=== PATIENT | male | born 1995 | race Two or more races ===

== ENCOUNTER 2021-05-21 16:46 | Emergency (ER) | payer BC ==
[~2021-05-21] VITALS: Ht 167.6 cm; Wt 81.6 kg
[2021-05-21 17:33] VITALS: BP 138/85
--- NOTE | 2021-05-21 18:41 | PHYS DOC ---
Past Medical History Past Surgical History: No Surgical History General Adult EDM: Chief Complaint: FATIGUE HPI: HPI: Patient is a 25 year old male without pertinent past medical history who presents with 2 weeks of generalized fatigue, nausea, sweating/clamminess, lig htheadedness. States that he had a brief episode of left-sided chest discomfort that has passed and has not returned. This was sometime 1-2 weeks ago. States that he has had these types of symptoms before but they have lasted for only 1-2 hours, and tended to go away on their own. He does state that since the 2 weeks of symptoms, he is also had a slight cough. States that they have been intermittent since 2019. States that he saw a doctor, and at first they thought it was GERD and started him on an acid blocking medication. He does not currently have a PCP. No current medications. No major surgical history. No major medical history. Review of Systems: Review of Systems: Constitutional: Reports generalized fatigue. Denies fever or chills. [] Eyes: Denies change in visual acuity. [] HENT: Denies nasal congestion or sore throat. [] Respiratory: Denies cough or shortness of breath. [] Cardiovascular: Denies chest pain or edema. [] GI: Reports nausea. Denies abdominal pain, vomiting, bloody stools or diarrhea. [] : Denies dysuria. [] Musculoskeletal: Denies back pain or joint pain. [] Integument: Reports sweating/clamminess. Denies rash. [] Neurologic: Reports occasional headaches. Denies focal weakness or sensory changes. [] Endocrine: Denies polyuria or polydipsia. [] Lymphatic: Denies swollen glands. [] Psychiatric: Denies depression or anxiety. [] Heart Score: C/O Chest Pain: N/A Risk Factors: Risk Factors: DM, Current or recent (<one month) smoker, HTN, HLP, family history of CAD, obesity. Risk Scores: Score 0 - 3: 2.5% MACE over next 6 weeks - Discharge Home Score 4 - 6: 20.3% MACE over next 6 weeks - Admit for Clinical Observation Score 7 - 10: 72.7% MACE over next 6 weeks - Early Invasive Strategies Allergies: Allergies: Allergies Coded Allergies Type Severity Reaction Last Updated Verified No Known Drug Allergies 05/21/21 No Physical Exam: PE: Constitutional: Well developed, well nourished, no acute distress, non-toxic appearance. [] HENT: Normocephalic, atraumatic, bilateral external ears normal, oropharynx moist, no oral exudates, nose normal. [] Eyes: PERRLA, EOMI, conjunctiva normal, no discharge. [] Neck: Normal range of motion, no tenderness, supple, no stridor. [] Cardiovascular:Heart rate regular rhythm, no murmur [] Lungs & Thorax: Bilateral breath sounds clear to auscultation [] Abdomen: Bowel sounds normal, soft, no tenderness, no masses, no pulsatile masses. [] Skin: clammy skin. Warm, no erythema, no rash. [] Back: No tenderness, no CVA tenderness. [] Extremities: No tenderness, no cyanosis, no clubbing, ROM intact, no edema. [] Neurologic: Alert, oriented to person, place, time. Face is symmetric. Speech is normal. Visual richards intact. Cranial nerves III-XII intact. 5/5 strength in bilateral upper and lower extremities in all dermatomes. No dysmetria with [id number]-[id number] or ftdd-js-rnve testing. Gait is stable. Psychologic: Affect normal, judgement normal, mood normal. [] Current Patient Data: Vital Signs: Vital Signs Date Time Temp Pulse Resp B/P (MAP) Pulse Ox O2 Delivery O2 Flow Rate FiO2 05/21/21 17:33 99.1 87 18 138/85 (102) 98 Room Air 99.1 EKG: EKG: [] Radiology/Procedures: Radiology/Procedures: [facility] [address] [place] [address] IMAGING REPORT Signed PATIENT: DYLLAN RICHARDSON ACCOUNT: [id number] : 1995 LOCATION: ER AGE: 25 SEX: M EXAM STATUS: REG ER ORD. PHYSICIAN: HEIDE JOINER MD REASON: cough, left sided chest discomfort PROCEDURE: CHEST AP ONLY Study: XR CHEST 1V Indication: Cough. Left-sided chest discomfort. Comparison: None. Findings: No pneumothorax, lobar consolidation or pleural effusion. The cardiomediastinal silhouette and daiana are within normal limits. No readily apparent abnormality of the partially assessed ribs. No free gas under the diaphragm. Impression: No acute radiographic abnormality of the chest. Electronically signed by: LORRI CRANE MD (05/21/2021 7:54 PM) [facility] DICTATED and SIGNED BY: LORRI CRANE MD DATE: 05/21/[id number] 0 [] Course & Med Decision Making: Course & Med Decision Making Pertinent Labs and Imaging studies reviewed. (See chart for details) Patient is 25-year-old male without pertinent past medical history who presents with 2 weeks of generalized fatigue, nausea, clamminess, lightheadedness, and cough. States he has had similar episodes in the past, but never lasting this long. Fortunately he is well-appearing with a normal exam aside from some skin clamminess, with normal vital signs. We will check basic labs, EKG, chest x-ray, Covid, and TSH. 1840 Labs unrevealing except for very mild leukocytosis. No source for infection identified. Is not immunocompromised and no hx of IVDU. Feel he does not require any further ED work up based on leukocytosis. EKG normal. Chest x-ray clear. Feel he is safe for discharge at this time. COVID pending. Will provide with a number for PCP office to establish care. 2013 Eloise Disclaimer: Eloise Disclaimer: This electronic medical record was generated, in whole or in part, using a voice recognition dictation system. Departure Departure Impression: Primary Impression: Fatigue Additional Impression: Clammy skin Disposition: HOME / SELF CARE / HOMELESS Condition: STABLE Referrals: NO PCP (PCP) Additional Instructions: Your work-up today was largely reassuring. Your EKG, chest x-ray both looked good. Your thyroid function was normal. Your electrolytes, kidney function, liver function were normal. Your red blood cell counts were normal. Your white blood cell count was very slightly elevated. Your Covid test is pending. Please tell you know the results of your test. If it is positive, you will need to isolate for at least 10 days from symptom onset, and have at least 3 days of improved symptoms. Since you do not have a PCP, please call the number for the [facility] at [phone]. HEIDE JOINER MD May 21, 2021 18:41
[2021-05-21 18:50] LABS: BASO # 0.1 x10^3/uL (0.0-0.2); BASO % 1 % (0-3); EOS % 0 % (0-3); HEMATOCRIT 46.3 % (39.0-53.0); LYMPH # 3.1 x10^3/uL (1.0-4.8); LYMPH % 26 % (24-48); MEAN CORPUSCULAR HEMOGLOBIN 30 pg (25-35); MEAN CORPUSCULAR HGB CONC 35 g/dL (31-37); MEAN CORPUSCULAR VOLUME 88 fL (79-100); MONO # 0.8 x10^3/uL (0.0-1.1); MONO % 7 % (0-9); NEUT # 7.8 x10^3/uL (1.8-7.7); NEUT % 66 % (31-73); PLATELET COUNT 272 x10^3/uL (140-400); RED BLOOD COUNT 5.29 x10^6/uL (4.30-5.70); RED CELL DISTRIBUTION WIDTH 13.1 % (11.5-14.5); WHITE BLOOD COUNT 11.9 x10^3/uL (4.0-11.0)
[2021-05-21 19:01] LABS: CALCIUM 9.4 mg/dL (8.5-10.1); POTASSIUM 4.5 mmol/L (3.5-5.1)
[2021-05-21 19:07] LABS: ALBUMIN 4.3 g/dL (3.4-5.0); ALBUMIN/GLOBULIN RATIO 1.2 (1.0-1.7); TOTAL BILIRUBIN 0.6 mg/dL (0.2-1.0); TOTAL PROTEIN 7.9 g/dL (6.4-8.2)
--- NOTE | 2021-05-21 19:56 | RAD ---
Study: XR CHEST 1V Indication: Cough. Left-sided chest discomfort. Comparison: None. Findings: No pneumothorax, lobar consolidation or pleural effusion. The cardiomediastinal silhouette and daiana a re within normal limits. No readily apparent abnormality of the partially assessed ribs. No free gas under the diaphragm. Impression: No acute radiographic abnormality of the chest. Electronically signed by: LORRI CRANE MD (05/21/2021 7:54 PM) [facility]
[2021-05-21] MEDS ORDERED: ONDA4TAB7 PO (20:32)
--- NOTE | 2021-05-22 06:34 | EKG ---
[facility] [address] [place] [address] Test Date: 2021-05-21 Test Time: 18:50:54 Pat Name: DYLLAN RICHARDSON Department: Room: Gender: M Jet Man: : 1995 Requested By: HEIDE JOINER Order Number: [id number] Reading MD: Measurements Intervals Radcliffe Rate: 77 P: 43 NV: 170 QRS: 34 QRSD: 96 T: 40 QT: 348 QTc: 395 Interpretive Statements SINUS RHYTHM OTHERWISE NORMAL ECG RI6.02 No previous ECG available for comparison
--- NOTE | 2021-05-22 15:37 | NUR ---
IP: Patient notified of negative COVID19 test result. Verbalized understanding.
== END 2021-05-21 20:32 | disposition home or self-care (01) ==
LOC: ER 16:46
DX: R53.83 Other fatigue (principal); R23.1 Pallor; Z20.822 Contact with and (suspected) exposure to COVID-19; R07.89 Other chest pain; R42 Dizziness and giddiness
CPT/HCPCS: 36415; 71045; 80053; 84443; 85025; 93005; 99285; U0003; U0005

== ENCOUNTER → 2021-12-10 | Outpatient (CLI) | payer BC ==
[~2021-12-10] MED LIST: ONDA4TAB7 PO
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
== END ==
LOC: KCIC MRI 12:26
PROVIDERS: ATTEND Family Medicine
DX: H81.03 Meniere's disease, bilateral (principal)
CPT/HCPCS: 70551